=== PATIENT | male | born 1940 | race Caucasian/White ===

== ENCOUNTER → 2021-04-15 | Outpatient (CLI) | payer OTHER ==
[~2021-04-15] MED LIST: ACTOS 45 MG45 M1 PO; FLOMAX0.4 MG PO; GLIPIZIDE 10 MG10 MG PO; GLUMETZA1000 PO; LIPITOR80 MG PO; LISINOPRIL20 MG PO
== END ==
LOC: LAB 09:39
PROVIDERS: ATTEND Student in an Organized Health Care Education/Training Program
DX: Z01.812 Encounter for preprocedural laboratory examination (principal); Z20.822 Contact with and (suspected) exposure to COVID-19

== ENCOUNTER 2021-04-16 06:06 | Observation (INO) | payer OTHER ==
[~2021-04-16] VITALS: Ht 182.9 cm; Wt 89.4 kg
[2021-04-16 07:42] VITALS: BP 146/54
--- NOTE | 2021-04-16 08:01 | EKG ---
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
[2021-04-16 11:43] VITALS: BP 134/68
[2021-04-16 12:06] VITALS: BP 140/81
--- NOTE | 2021-04-16 12:28 | NUR ---
ASSUMED CARE OF PT AROUND 1120 FROM SURGERY. PT HAD A LEFT TOTAL KNEE. PT ALERT AND ORIENTED TIMES FOUR. VSS. DENIES PAIN ON ADMISSION TO UNIT. POLAR PACK IN PLACE. POSSIBLE DISCHARGE HOME TODAY.
[2021-04-16 13:50] VITALS: BP 140/81
== END 2021-04-16 15:31 | disposition home or self-care (01) ==
LOC: OR → TBA 06:12 → OR 09:39 → 4S 12:03 → OR 13:50 → 4S 15:31 → OR 16:10
PROVIDERS: ADMIT Orthopaedic Surgery; ATTEND Orthopaedic Surgery
DX: M17.12 Unilateral primary osteoarthritis, left knee (principal); E11.9 Type 2 diabetes mellitus without complications; Z79.899 Other long term (current) drug therapy
CPT/HCPCS: 27447; S2900; 50010; 50101; 50415; 50954; 51130; 51225; 51320; 52001; 52282; 53000; 53078; 54118; 56527; 56528; 57095; 57103; 57110; 57127; 58239; 58637; 62110; 62900; 65085; 70005